=== PATIENT | male | born 1970 | race African-American/Black ===

== ENCOUNTER 2021-11-26 10:32 | Emergency (ER) | payer SELFPAY ==
[~2021-11-26] VITALS: Ht 182.9 cm; Wt 90.7 kg
[2021-11-26 11:00] VITALS: BP_SYST 152
--- NOTE | 2021-11-26 11:00 | NUR ---
Pt brought by self, A&Ox4, pt presents to ER with redness/pain on bilateral legs, afebrile, skin pink and warm , cap refill <3.
--- NOTE | 2021-11-26 11:20 | NUR ---
Dr Gibson evaluating patient at bedside
[2021-11-26] MEDS ORDERED: CEPH250C PO (11:24)
[2021-11-26] MEDS ORDERED: BACI28.433 TP (11:24)
[2021-11-26 11:35] VITALS: BP_SYST 152
--- NOTE | 2021-11-26 11:36 | NUR ---
Patient given written and verbal discharge instructions and verbalizes understanding. ER MD discussed with patient the results and treatment provided. Patient in stable condition. ID arm band removed. Rx of Bacitracin and Keflex given. Patient educated on pain management and to follow up with PMD. Pain Scale 0/10 . Opportunity for questions provided and answered. Medication side effect fact sheet provided.
== END 2021-11-26 11:35 | disposition home or self-care (01) ==
LOC: SED 10:32
DX: L03.116 Cellulitis of left lower limb (principal); I10 Essential (primary) hypertension; Z79.899 Other long term (current) drug therapy
CPT/HCPCS: 99283